=== PATIENT | female | born 1950 | race Hispanic/Latino ===

== ENCOUNTER 2023-05-23 04:47 | Emergency (ER) | payer MEDICARE ==
[~2023-05-23] VITALS: Ht 152.4 cm; Wt 69.9 kg
[~2023-05-23 04:47] MED LIST: ALEN70TA80 PO; ATOR40TA71 PO; CHOL500050 PO; CYAN50009 PO; LEVO100T12 PO; LOSA50TA64 PO; METF-444 PO
[2023-05-23 05:11] VITALS: BP 166/69; PULSE 56; RESP 16; O2SAT 97
== END 2023-05-23 05:42 | disposition home or self-care (01) ==
LOC: EDH 04:47
DX: M54.2 Cervicalgia (principal); E11.9 Type 2 diabetes mellitus without complications; E03.9 Hypothyroidism, unspecified; E78.00 Pure hypercholesterolemia, unspecified; I10 Essential (primary) hypertension; Z79.84 Long term (current) use of oral hypoglycemic drugs; Z79.890 Hormone replacement therapy; Z79.899 Other long term (current) drug therapy; Z88.5 Allergy status to narcotic agent; Z88.6 Allergy status to analgesic agent; Z91.030 Bee allergy status
CPT/HCPCS: 99281